=== PATIENT | female | born 1950 | race Caucasian/White ===

== ENCOUNTER 2022-12-23 07:00 | Day surgery (SDC) | payer MEDICARE ==
[2022-12-18 12:22] VITALS: BP 190/91; PULSE 77; RESP 20
[2022-12-18 12:26] LABS: BASOPHILS # (AUTO) 0.02 K/uL (0.00-0.20); BASOPHILS % (AUTO) 0.3 % (0.0-5.0); EOSINOPHILS # (AUTO) 0.03 K/uL (0.00-0.70); EOSINOPHILS % (AUTO) 0.5 % (0.0-8.0); HEMATOCRIT 38.2 % (36-48); IMMATURE GRANULOCYTE ABSOLUTE 0.02 K/uL (0-1); LYMPHOCYTES # (AUTO) 1.1 K/uL (1.0-4.8); LYMPHOCYTES % (AUTO) 18.5 % (21.0-51.0); MEAN CORPUSCULAR HEMOGLOBIN 31.9 pg (27.0-33.0); MEAN CORPUSCULAR HGB CONC 33.5 g/dL (32.0-36.0); MEAN CORPUSCULAR VOLUME 95.3 fL (79-99); MONOCYTES # (AUTO) 0.5 K/uL (0.1-1.0); NEUTROPHILS # (AUTO) 4.1 K/uL (1.8-7.7); NEUTROPHILS % (AUTO) 72.4 % (40.0-77.0); PLATELET COUNT (AUTO) 125 K/uL (130-400); RED BLOOD CELL COUNT(AUTO) 4.01 MIL/uL (4.00-5.50); WHITE BLOOD COUNT (AUTO) 5.7 K/uL (4.8-10.8)
[2022-12-18 12:33] LABS: CREATININE 1.2 mg/dL (0.5-1.5); POTASSIUM 4.8 mmol/L (3.5-5.1)
[2022-12-18 12:35] LABS: INR 0.95 (0.85-1.15); PROTHROMBIN TIME 11.1 SEC (9.6-11.6)
[~2022-12-23] VITALS: Ht 172.7 cm; Wt 128.5 kg
[2022-12-23] VITALS (19 sets, daily range): BP systolic 129–162; BP diastolic 58–73; PULSE 68–82; RESP 13–18
[~2022-12-23 07:00] MED LIST: BUPIVACAINE/EPI/PF 0.5% 30ML VIAL IJ SCH; CALC-1062 PO; CHOL100046 PO; CLOB30CR5 TP; COQ10 PO; CYAN1TAB44 PO; FLUTICASONE PROPI NASAL; FOLI0.8T22 PO; GABA-531 PO; GABA300C PO; HYALURONIC ACID VG; INSLAN SQ; INSU100C6 SQ; LISI40TA9 PO; MONT-46 PO; MULT-40 PO; PRESERVISION PO; SIMV-43 PO; SODI650T PO; TRAZ-185 PO; TRI115C TP
[2022-12-23] MEDS ORDERED: LIDOCAINE IJ SCH ×2 (07:30)
[2022-12-23] MEDS ORDERED: EPINEPHRINE IJ SCH ×2 (07:30)
[2022-12-23] MEDS ORDERED: BUPIVACAINE IJ SCH ×2 (07:30)
[2022-12-23] MEDS ORDERED: 0.9%NACL 1000ML 1,000 ML IV ONE (07:49)
[2022-12-23] MEDS ORDERED: CEFAZOLIN SODIUM 1 GM VIAL ONE (08:03)
[2022-12-23] MEDS: CEFAZOLIN SODIUM 2 GM VIAL ONE ×2 (08:16→09:25)
[2022-12-23] MEDS ORDERED: MIDAZOLAM HCL 1 MG/ML 2ML VIAL ONE (08:48)
[2022-12-23] MEDS ORDERED: SUCCINYLCHOLINE CHLORIDE 20 MG/ML 10 ML VIAL ONE (08:48)
[2022-12-23] MEDS ORDERED: PROPOFOL 10 MG/ML 20ML VIAL IV ONE ×2 (08:48→09:31)
[2022-12-23] MEDS ORDERED: ROCURONIUM 10MG/1ML SYR 10 MG/ML ML ONE (08:49)
[2022-12-23] MEDS ORDERED: FENTANYL CITRATE PF 50 MCG/1 ML 2ML VIAL ONE ×2 (08:49→10:00)
[2022-12-23] MEDS ORDERED: ONDANSETRON 4MG INJ ONE (08:49)
[2022-12-23] MEDS ORDERED: EPHEDRINE SULFATE 50 MG/ML AMPULE ONE (09:38)
[2022-12-23] MEDS ORDERED: LABETALOL 20MG SYG IV ONE (10:01)
[2022-12-23] MEDS ORDERED: TRAM50TA4 PO (10:05)
[2022-12-23] MEDS ORDERED: DOCU-116 PO (10:05)
[2022-12-23] MEDS ORDERED: IPRATROPIUM/ALBUTEROL SULFATE 3 ML SOLUTION IH ONE ×2 (10:54→11:00)
== END 2022-12-23 12:00 | disposition home or self-care (01) ==
LOC: DAH 07:00
PROVIDERS: ATTEND Surgery
DX: Z45.2 Encounter for adjustment and management of vascular access device (principal); I10 Essential (primary) hypertension; E66.01 Morbid (severe) obesity due to excess calories; E11.42 Type 2 diabetes mellitus with diabetic polyneuropathy; E78.5 Hyperlipidemia, unspecified; M81.0 Age-related osteoporosis without current pathological fracture; Z92.21 Personal history of antineoplastic chemotherapy; Z85.038 Personal history of other malignant neoplasm of large intestine; Z98.890 Other specified postprocedural states; Z90.710 Acquired absence of both cervix and uterus; Z90.89 Acquired absence of other organs; Z79.01 Long term (current) use of anticoagulants; Z80.0 Family history of malignant neoplasm of digestive organs; Z80.1 Family history of malignant neoplasm of trachea, bronchus and lung; Z80.51 Family history of malignant neoplasm of kidney; Z79.4 Long term (current) use of insulin; Z79.899 Other long term (current) drug therapy; Z88.8 Allergy status to other drugs, medicaments and biological substances
CPT/HCPCS: 80048; 85025; 85610; 85730; 36415; 93005; 36590; 82948 ×2; 71045; 94640; A4663; J7030 ×2; A4452; A4649; J3010 ×2; J0690 ×2; J0330; J3490 ×3; J2250; J2704 ×2; J2405; A4215; A4223; A4222; A4221; A4600